=== PATIENT | male | born 1975 | race Caucasian/White ===

== ENCOUNTER 2018-01-31 22:57 | Emergency (ER) | payer OTHER ==
[~2018-01-31] VITALS: Ht 190.5 cm; Wt 72.0 kg
[2018-01-31] MEDS ORDERED: penicillin G benzathine 1.2 million unit/2ml syringe IM STA (23:33)
[2018-02-01 00:13] VITALS: BP 110/72
== END 2018-02-01 00:15 | disposition home or self-care (01) ==
LOC: ER 22:57
DX: J02.0 Streptococcal pharyngitis (principal); B95.0 Streptococcus, group A, as the cause of diseases classified elsewhere
CPT/HCPCS: 87880; 96372; 99283; J0561

== ENCOUNTER 2019-09-30 19:40 | Emergency (ER) | payer MEDICAID ==
[~2019-09-30] VITALS: Ht 190.5 cm; Wt 75.0 kg
[2019-09-30 19:51] VITALS: BP 100/62
== END 2019-09-30 21:07 | disposition home or self-care (01) ==
LOC: ER 19:41
DX: R05 Cough (principal); F12.90 Cannabis use, unspecified, uncomplicated; F15.90 Other stimulant use, unspecified, uncomplicated; Z87.891 Personal history of nicotine dependence
CPT/HCPCS: 71045; 93005; 99283

== ENCOUNTER 2019-10-07 02:01 | Emergency (ER) | payer MEDICAID ==
[~2019-10-07] VITALS: Ht 190.5 cm; Wt 75.0 kg
[2019-10-07 02:06] VITALS: BP 146/92
[2019-10-07] MEDS ORDERED: ALBU8.5H8 IH (02:29)
[2019-10-07] MEDS ORDERED: AZIT250T PO (02:29)
== END 2019-10-07 02:37 | disposition home or self-care (01) ==
LOC: ER 02:02
DX: J20.9 Acute bronchitis, unspecified (principal); F12.90 Cannabis use, unspecified, uncomplicated; F15.90 Other stimulant use, unspecified, uncomplicated
CPT/HCPCS: 71045; 99283

== ENCOUNTER 2019-10-26 21:23 | Emergency (ER) | payer MEDICAID ==
[~2019-10-26] VITALS: Ht 190.5 cm; Wt 74.7 kg
[~2019-10-26 21:23] MED LIST: ALBU8.5H8 IH
[2019-10-26 21:31] VITALS: BP 102/67
[2019-10-26 22:31] LABS: BASOPHILS # (AUTO) 0.1 X10'3 (0-0.2); EOSINOPHILS # (AUTO) 0.1 X10'3 (0-0.9); EOSINOPHILS % (AUTO) 1.6 % (0-6); HEMATOCRIT 35.2 % (42.0-52.0); HEMOGLOBIN 11.6 g/dl (14.0-17.9); LYMPHOCYTES # (AUTO) 2.1 X10'3 (1.1-4.8); LYMPHOCYTES % (AUTO) 25.5 % (21-51); MEAN CORPUSCULAR HEMOGLOBIN 27.9 PG (27.0-31.0); MEAN CORPUSCULAR HGB CONC 32.9 g/dL (33.0-36.5); MEAN CORPUSCULAR VOLUME 84.7 FL (78-98); MEAN PLATELET VOLUME 8.3 FL (7.4-10.4); MONOCYTES # (AUTO) 0.6 X10'3 (0-0.9); MONOCYTES % (AUTO) 7.4 % (2-12); NEUTROPHILS # (AUTO) 5.3 X10'3 (1.8-7.7); NEUTROPHILS % (AUTO) 64.5 % (42-75); PLATELET COUNT 354 X10'3 (140-440); RED BLOOD COUNT 4.16 X10'6 (4.70-6.10); RED CELL DISTRIBUTION WIDTH 14.7 % (11.5-14.5); WHITE BLOOD COUNT 8.3 X10'3 (4.5-11.0)
[2019-10-26 22:42] LABS: ALANINE AMINOTRANSFERASE 259 U/L (12-78); ALBUMIN 3.1 G/DL (3.4-5.0); ALBUMIN/GLOBULIN RATIO 0.9 (1.1-1.5); ALKALINE PHOSPHATASE 92 IU/L (46-116); ANION GAP 9 (8-16); ASPARTATE AMINO TRANSFERASE 79 U/L (10-37); BILIRUBIN,TOTAL 0.8 MG/DL (0.1-1.0); BLOOD UREA NITROGEN 24 MG/DL (7-18); BUN/CREATININE RATIO 18.8 (5.4-32.0); CALCIUM 8.1 MG/DL (8.5-10.1); CHLORIDE 101 MMOL/L (99-107); CREATININE 1.28 MG/DL (0.60-1.10); GLUCOSE 95 MG/DL (70-104); SODIUM 133 MMOL/L (135-145); TOTAL CARBON DIOXIDE 23.4 MMOL/L (24-32); TOTAL PROTEIN 6.4 G/DL (6.4-8.2); eGFR 62 ML/MIN
[2019-10-26 23:04] LABS: URINE AMPHETAMINE SCREEN NEGATIVE (Neg); URINE BARBITUATE SCREEN NEGATIVE (Neg); URINE BENZODIAZEPINES SCREEN NEGATIVE (Neg); URINE CANNABINOID SCREEN NEGATIVE (Neg); URINE COCAINE SCREEN NEGATIVE (Neg); URINE METHADONE SCREEN NEGATIVE (Neg); URINE OPIATE SCREEN NEGATIVE (Neg); URINE PHENCYCLIDINE SCREEN NEGATIVE (Neg)
--- NOTE | 2019-10-26 23:06 | NUR ---
PER DR. SILVA, NO PIV NEEDED AT THIS TIME.
== END 2019-10-26 23:45 | disposition home or self-care (01) ==
LOC: ER 21:24
DX: I42.9 Cardiomyopathy, unspecified (principal); R06.02 Shortness of breath; F15.10 Other stimulant abuse, uncomplicated; N28.9 Disorder of kidney and ureter, unspecified; R79.89 Other specified abnormal findings of blood chemistry; R33.9 Retention of urine, unspecified; I50.9 Heart failure, unspecified; I25.2 Old myocardial infarction; F12.90 Cannabis use, unspecified, uncomplicated; Z79.899 Other long term (current) drug therapy
CPT/HCPCS: 36415; 71045; 80053; 80305; 83880; 84484; 85025; 93005; 99284

== ENCOUNTER 2023-05-28 16:24 | Emergency (ER) | payer MEDICARE, MEDICAID ==
[~2023-05-28] VITALS: Ht 190.5 cm; Wt 68.0 kg
[~2023-05-28 16:24] MED LIST changes: +ALBU8.5H17 IH; -ALBU8.5H8 IH
[2023-05-28 16:31] VITALS: BP 93/75
== END 2023-05-28 18:04 | disposition home or self-care (01) ==
LOC: ER 16:25
DX: J32.9 Chronic sinusitis, unspecified (principal); Z20.822 Contact with and (suspected) exposure to COVID-19; J06.9 Acute upper respiratory infection, unspecified; I50.9 Heart failure, unspecified; F12.90 Cannabis use, unspecified, uncomplicated; F15.90 Other stimulant use, unspecified, uncomplicated
CPT/HCPCS: 71046; 87811; 99284